=== PATIENT | male | born 1950 | race Caucasian/White ===

== ENCOUNTER → 2016-10-08 | Outpatient (CLI) | payer BC | END | disposition home or self-care (01) | LOC: LABWHC1 10:31 | PROVIDERS: ATTEND Psychiatry & Neurology Psychiatry | DX: F11.20 Opioid dependence, uncomplicated (principal); G40.909 Epilepsy, unspecified, not intractable, without status epilepticus; F32.9 Major depressive disorder, single episode, unspecified; E03.9 Hypothyroidism, unspecified; E78.5 Hyperlipidemia, unspecified | CPT/HCPCS: 80306; 80362 ==

== ENCOUNTER 2021-11-20 07:02 | Day surgery (SDC) | payer BC ==
[2021-11-18 11:55] VITALS: BMI 23.1
[~2021-11-20 07:02] MED LIST: LACTATED RINGERS 1,000 ML IV SCH
[2021-11-20 07:27] VITALS: TEMP 97.4
[2021-11-20] MEDS ORDERED: MIDAZOLAM 2 MG/2 ML VIAL IVP ONE (07:39)
[2021-11-20] MEDS ORDERED: PROPOFOL 10 MG/ML 20 ML VIAL IV ONE (07:54)
[2021-11-20 08:38] VITALS: BP 117/67; PULSE 69; RESP 17
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
--- NOTE | 2021-11-20 09:20 | P.OP ---
Date of Procedure: 11/20/21 Preoperative Diagnosis: Screening colonoscopy Postoperative Diagnosis: Moderate diverticulosis Procedure(s) Performed: Colonoscopy Anesthesia: MAC Surgeon: Kevin Eason Pathology: none sent Condition: stable Disposition: PACU Description of Procedure: The patient's placed on the endoscopy table in the lateral position. He received IV sedation. Digital rectal exam performed. This revealed no abnormalities. The prostate was symmetrical without nodules. The flexible colonoscope was then placed patient anus and passed through the colon. The colon was quite tortuous. The scope could not be advanced past the hepatic flexure. At this point scope was withdrawn. The transverse colon appeared no rmal. The descending colon had a few scattered diverticula there was moderate diverticulosis in the sigmoid colon. There is no evidence of diverticulitis. The scope was brought back the rectum and this appeared normal. The findings were discussed the patient. The patient was offered a barium enema or CAT scan evaluate the right colon. Patient declined this. He will be observed.
== END 2021-11-20 09:00 | disposition home or self-care (01) ==
LOC: ORWHC2ENDO 07:02
PROVIDERS: ATTEND Surgery
DX: Z12.11 Encounter for screening for malignant neoplasm of colon (principal); K57.30 Diverticulosis of large intestine without perforation or abscess without bleeding; K63.89 Other specified diseases of intestine; I10 Essential (primary) hypertension; Z86.718 Personal history of other venous thrombosis and embolism; H91.90 Unspecified hearing loss, unspecified ear; M19.90 Unspecified osteoarthritis, unspecified site; Z87.891 Personal history of nicotine dependence; F40.240 Claustrophobia; Z79.899 Other long term (current) drug therapy; Z79.1 Long term (current) use of non-steroidal anti-inflammatories (NSAID); G47.33 Obstructive sleep apnea (adult) (pediatric)
CPT/HCPCS: 45378; J2250; J2704

== ENCOUNTER 2021-11-26 07:50 | Day surgery (SDC) | payer BC ==
[2021-11-18 12:53] VITALS: BMI 23.1
[~2021-11-26 07:50] MED LIST changes: +FAMOTIDINE 20 MG/2 ML VIAL IV PRN
[2021-11-26] MEDS ORDERED: ONDANSETRON 4 MG/2 ML VIAL ONE (08:44)
[2021-11-26] MEDS ORDERED: DEXAMETHASONE SOD PHOSPHATE 4 MG/ML 1 ML VIAL IVP ONE (08:57)
[2021-11-26] MEDS ORDERED: MIDAZOLAM 2 MG/2 ML VIAL IVP ONE (08:58)
[2021-11-26] MEDS ORDERED: PROPOFOL 10 MG/ML 20 ML VIAL IV ONE (09:20)
[2021-11-26] MEDS ORDERED: LIDOCAINE 2% INJ 20 MG/ML (2 ML VIAL) ONE (09:20)
[2021-11-26] MEDS ORDERED: PHENYLEPHRINE-0.9% NACL SYG 1,000 MCG/10 ML SYRINGE ONE (09:20)
[2021-11-26] MEDS ORDERED: KETOROLAC 15 MG/ML 1 ML VIAL ONE (09:20)
[2021-11-26] MEDS ORDERED: DEXAMETHASONE SOD PHOSPHATE 10 MG/ML 1 ML VIAL ONE (09:20)
[2021-11-26] MEDS ORDERED: LIDOCAINE 1%-EPI 1:100,000 20 ML VIAL SQ ONE (09:48)
[2021-11-26] MEDS ORDERED: LACTATED RINGERS 1,000 ML IV ONE (10:22)
--- NOTE | 2021-11-26 10:29 | P.OP ---
Date of Procedure: 11/26/21 Preoperative Diagnosis: Right postauricular cutaneous lesion Postoperative Diagnosis: Same, lipoma grossly Procedure(s) Performed: Excision right postauricular subcutaneous lesionlipoma 3.5 x 3 cm Anesthesia: COLBY Surgeon: George Vaughn Estimated Blood Loss (ml): 5 Pathology: other (Right postauricular lesion) Condition: stable Disposition: PACU Indications for Procedure: This 71-year-old white male with long history of right postauricular lesion which appears most consistent with sebaceous cyst. Operative Findings: Deep subcutaneous lesion consistent grossly with lipoma extending down to the periosteum but the periosteum was intact Description of Procedure: The patient was brought in the operative suite and placed in a supine position. The patient underwent induction of general anesthesia with laryngeal mask airway intubation without difficulty. The patient was prepped and draped in usual aseptic fashion. 1% lidocaine with 1-100,000 epinephrine was infused subcutaneously and field block fashion. This was left to work for 7 minutes vasoconstrictive effect. An incision was made over the lesion and carried sharply through the skin and subcutaneous tissue to the lesion itself which appeared consistent with a lipoma. This was then excised from the surrounding tissue grossly entirely and hemostasis was gained with electrocautery and small vessels were tied with 3-0 Vicryl ties. Excellent hemostasis was noted and the wound was copiously irrigated sterile normal saline. Hemostasis remained good and the muscular and subcutaneous layers were closed with inverted interrupted 4-0 Vicryl suture and skin closed with running locking 5-0 Prolene suture. Bacitracin ointment and sterile dressing were placed. Patient tolerated procedure well and was extubated in the operating suite and [facility] to [facility] top recovery area in satisfactory condition.
[2021-11-26 10:49] VITALS: TEMP 97.4
[2021-11-26 10:55] VITALS: RESP 16
[2021-11-26] MEDS ORDERED: ACETAMINOPHEN TAB 325 MG TAB ONE (11:56)
[2021-11-26] MEDS ORDERED: ACETAMINOPHEN TAB 325 MG TAB PO ONE ×2 (11:57)
[2021-11-26 12:01] VITALS: BP 136/67; PULSE 62
== END 2021-11-26 12:18 | disposition home or self-care (01) ==
LOC: OR 07:50
PROVIDERS: ATTEND Otolaryngology
DX: D17.0 Benign lipomatous neoplasm of skin and subcutaneous tissue of head, face and neck (principal); Z87.891 Personal history of nicotine dependence; F41.9 Anxiety disorder, unspecified; Z79.899 Other long term (current) drug therapy
CPT/HCPCS: 88304; 21012; J2250; J1100 ×2; J0690; J2405; J1885; J2370; J2704; J2001